=== PATIENT | female | born 1980 | race African-American/Black ===

== ENCOUNTER 2019-06-07 10:52 | Emergency (ER) | payer OTHER ==
[~2019-06-07] VITALS: Ht 167.6 cm; Wt 145.6 kg
[2019-06-07] MEDS ORDERED: CLONIDINE HCL 0.1 MG TAB ONE (11:41)
[2019-06-07] MEDS ORDERED: CLONIDINE HCL 0.2 MG TAB PO ONE (11:45)
== END 2019-06-07 12:40 | disposition home or self-care (01) ==
LOC: FSED 10:52
DX: I16.9 Hypertensive crisis, unspecified (principal); I10 Essential (primary) hypertension; R51 Headache
CPT/HCPCS: 80053; 81003; 82553; 84484; 85025; 93005; 99283

== ENCOUNTER 2020-06-29 15:52 | Emergency (ER) | payer SELFPAY ==
[~2020-06-29] VITALS: Ht 170.2 cm; Wt 164.5 kg
[2020-06-29] MEDS ORDERED: OFLOXACIN5 ML OT (16:31)
[2020-06-29 16:36] VITALS: BP 164/90
== END 2020-06-29 16:42 | disposition home or self-care (01) ==
LOC: FSED 16:10
DX: S00.412A Abrasion of left ear, initial encounter (principal); W22.8XXA Striking against or struck by other objects, initial encounter; I10 Essential (primary) hypertension; F41.9 Anxiety disorder, unspecified
CPT/HCPCS: 99282

== ENCOUNTER 2024-11-20 13:20 | Emergency (ER) | payer OTHER ==
[~2024-11-20] VITALS: Ht 167.6 cm; Wt 106.1 kg
[~2024-11-20 13:20] MED LIST: OFLOXACIN5 ML OT
[2024-11-20 14:03] VITALS: PULSE 80; RESP 19; TEMP 98.8
[2024-11-20 15:05] VITALS: BP 149/89; PULSE 70; RESP 17; TEMP 98; O2SAT 99
== END 2024-11-20 15:16 | disposition home or self-care (01) ==
LOC: FSED 13:49
DX: R19.7 Diarrhea, unspecified (principal); I10 Essential (primary) hypertension; E66.9 Obesity, unspecified; Z98.84 Bariatric surgery status
CPT/HCPCS: 80048; 99283

== ENCOUNTER 2025-01-27 17:49 | Emergency (ER) | payer OTHER ==
[~2025-01-27] VITALS: Ht 167.6 cm; Wt 109.8 kg
[2025-01-27 17:55] VITALS: PULSE 84; RESP 20; TEMP 98.6
[2025-01-27] MEDS: DEXAMETHASONE SOD PHOS INJ 4 MG/ML SDV IM ONE (18:20)
[2025-01-27] MEDS: ACETAMINOPHEN 325 MG TAB PO ONE (18:20)
[2025-01-27] MEDS: IBUPROFEN 200 MG TAB PO ONE (18:54)
[2025-01-27] MEDS ORDERED: PREDNISONE20 MG PO (19:02)
[2025-01-27] MEDS ORDERED: TYLENOL325 MG PO (19:02)
[2025-01-27 19:21] VITALS: BP 141/93; PULSE 84; RESP 18; TEMP 98.6; O2SAT 100
== END 2025-01-27 19:21 | disposition home or self-care (01) ==
LOC: FSED 18:01
DX: M54.6 Pain in thoracic spine (principal); R10.9 Unspecified abdominal pain; I10 Essential (primary) hypertension; E66.9 Obesity, unspecified; Z98.84 Bariatric surgery status
CPT/HCPCS: 71250; 81003; 99283; J1100